=== PATIENT | female | born 1980 | race African-American/Black ===

== ENCOUNTER 2020-03-08 21:51 | Emergency (ER) | payer MEDICAID, OTHER ==
[~2020-03-08] VITALS: Ht 160 cm; Wt 83.9 kg
[2020-03-08 21:51] VITALS: BP 115/78
[2020-03-08] MEDS ORDERED: LORAZEPAM INJ 2 MG/ML VIAL ONE (22:13)
[2020-03-08] MEDS ORDERED: LORAZEPAM INJ 2 MG/ML VIAL IM ONE (22:30)
--- NOTE | 2020-03-08 22:30 | NUR ---
RADIOLOGY AT BEDSIDE FOR CXR
--- NOTE | 2020-03-08 23:20 | NUR ---
PT REQ TO SEE SW IN AM
== END 2020-03-08 23:20 | disposition home or self-care (01) ==
LOC: ER 21:52
DX: R05 Cough (principal); Z20.828 Contact with and (suspected) exposure to other viral communicable diseases; I11.0 Hypertensive heart disease with heart failure; I50.9 Heart failure, unspecified; F41.9 Anxiety disorder, unspecified; Z59.2 Discord with neighbors, lodgers and landlord
CPT/HCPCS: 71045; 96372; 99284; C9803; J2060; U0003